=== PATIENT | male | born 1955 | race Caucasian/White ===

== ENCOUNTER 2016-11-20 07:19 | Day surgery (SDC) | payer OTHER ==
[~2016-11-20 07:19] MED LIST: ALBUTEROL200 PUFFS/ IH; ANTIBIOTIC; ASPIRIN 81MG TA81 MG PO; BREO ELLIPTA1 POW IH; BUPAP1 TA1 PO; CARVEDILOL6.25 MG PO; DALIRESP500 MCG PO; DIFLUCAN 100MG100 MG PO; DUONEB 3 MG/3 ML3 ML IH; FLOMAX0.4 MG PO; IPRATROPIUM BROM3 M1 IH; LEADER NATUR1000 MCG PO; LISINOPRIL10 MG PO; METRONIDAZOLE500 M2 PO; OMNARIS50 MCG/Act NS; PREDNISONE 20MG20 MG PO; PROVENTIL0.09 MG/A1 IH; QNASL80 MCG/Act NS; SALMETEROL-F28 PUFF1 IN; THEO-DUR 300MG300 MG PO; VANCOCIN125 MG PO; ZYVOX600 MG PO
[2016-11-20 07:46] LABS: HEMOGLOBIN 13.8 g/dL (14.1-18.0); LYMPH # 2.4 K/mm3 (0.7-4.5); LYMPH % 42.5 % (10-50)
[2016-11-20 07:51] LABS: BUN 21 mg/dL (7-18)
[2016-11-20 07:52] LABS: GFR (ESTIMATED) 76 ML/MIN (>60)
--- NOTE | 2016-11-20 10:26 | RADIOLOGY REPORT PS360 ---
CARDIAC CATHETERIZATION DATE OF CATHETERIZATION:11/20/2016 9:45 AM PROCEDURES: 1. Left heart catheterization 2. Left ventriculogram 3. Selective coronary angiogram 4. Drug-eluting stent deployment to the proximal to mid circumflex artery INDICATION FOR TEST: 1. Coronary artery disease 2. Acute non-ST elevation myocardial infarction Informed consent was obtained prior to the procedure. COMPLICATIONS: None ESTIMATED BLOOD LOSS: Less than 10 ml. TECHNIQUE: One percent lidocaine used to anesthetize the right anterior aspect of the wrist. The right radial artery was accessed via the Seldinger technique. A 6 German sheath was placed in the right radial artery. 2.5 mg of verapamil, 800 mcg of nitroglycerin and 5000 U Heparin were given through the arterial sheath. The Olivia catheter was also used to perform left heart catheterization and left ventriculography. At the end of the diagnostic angiogram and additional 3000 units of heparin was administered intravenously and an [employer] AS left guide catheter was used intubate the left main artery. A choice PT floppy wire was used to traverse the stenosis and a 2.5 x 22 mm resolute Chacho stent was deployed at 19 zbigniew reducing the stenosis to 20%. Repeat angiography demonstrated there was an under deployed or residual stenosis therefore a 3 mm x 8 mm noncompliant balloon was deployed at 20 zbigniew reducing the stenosis to less than 10%. Excellent angiographic results were obtained. Effient 10 mg was given on the table prior to the coronary intervention. The ACT was measured at 292 seconds ANGIOGRAPHIC RESULTS: 1. The left main artery normal 2. The left anterior descending artery proximally has a concentric 30% stenosis with mid vessel mild luminal irregularities 3. The circumflex artery is a nondominant vessel and has an 80-90% concentric stenosis immediately proximal to and distal to a small second obtuse marginal artery. 4. The right coronary artery is a large dominant vessel and has a long proximal to mid vessel concentric 30-40% stenosis over the course of 45 mm 5. The XAVIER ventriculogram reveals normal 65% 6. The left ventricular end-diastolic pressure less than 10 mmHg IMPRESSION: 1. Severe disease in the circumflex artery which is the etiology for patient's acute non-ST elevation myocardial infarction 2. Successful drug-eluting stent deployment to the proximal to mid circumflex artery severe disease reduced to less than 10% with 1 drug-eluting stent moderate disease throughout the proximal and mid dominant right coronary artery as described above 3. Normal ejection fraction 4. Normal left ventricular end-diastolic pressure PLAN: 1. Effient and aspirin 2. Avoidance of tobacco products 3. Cardiac rehabilitation 4. LDL goal less than 50 to be achieved with high intensity statin therapy 5. Continue YANETH inhibitor carvedilol
[2016-11-20 16:07] VITALS: BP 152/87
== END 2016-11-20 16:20 | disposition home or self-care (01) ==
LOC: CATHLAB 07:19
PROVIDERS: Internal Medicine
PROC: B2111ZZ Fluoroscopy of Multiple Coronary Arteries using Low Osmolar Contrast (ICD-10-PCS; 2016-11-20)
PROC: B2151ZZ Fluoroscopy of Left Heart using Low Osmolar Contrast (ICD-10-PCS; 2016-11-20)
PROC: 027034Z Dilation of Coronary Artery, One Artery with Drug-eluting Intraluminal Device, Percutaneous Approach (ICD-10-PCS; 2016-11-20)
PROC: 4A023N7 Measurement of Cardiac Sampling and Pressure, Left Heart, Percutaneous Approach (ICD-10-PCS; principal; 2016-11-20 10:15)
DX: I21.4 Non-ST elevation (NSTEMI) myocardial infarction (principal); I25.10 Atherosclerotic heart disease of native coronary artery without angina pectoris; Z72.0 Tobacco use; Z95.818 Presence of other cardiac implants and grafts
CPT/HCPCS: C1725; C1769; C1876; J1644; Q9967